=== PATIENT | female | born 1985 | race Caucasian/White ===

== ENCOUNTER 2016-12-30 22:59 | Emergency (ER) | payer OTHER ==
[~2016-12-30] VITALS: Ht 170.2 cm; Wt 76.4 kg
[~2016-12-30 22:59] MED LIST: DSS100 PO; IBUP-2070 PO; PREN-61 PO
[2016-12-31 00:04] VITALS: BP 120/83
== END 2016-12-31 00:46 | disposition left against medical advice (07) ==
LOC: EMS 23:01
DX: S90.32XA Contusion of left foot, initial encounter (principal); S00.33XA Contusion of nose, initial encounter; Y04.0XXA Assault by unarmed brawl or fight, initial encounter; Y93.89 Activity, other specified; Y92.89 Other specified places as the place of occurrence of the external cause; Y99.8 Other external cause status
CPT/HCPCS: 99281